=== PATIENT | female | born 2000 | race Caucasian/White ===

== ENCOUNTER 2020-05-20 13:53 | Emergency (ER) | payer MEDICAID ==
[~2020-05-20] VITALS: Ht 167.6 cm; Wt 54.4 kg
[2020-05-20 14:22] LABS: Basophils # (auto) 0 10 ^3/uL (0-0.2); Basophils % (auto) 0.6 % (0.0-2.0); Eosinophils # (auto) 0 10 ^3/uL (0-0.8); Eosinophils % (auto) 0.6 % (0.0-7.0); Hematocrit 40.4 % (36.0-46.0); Hemoglobin 13.6 g/dL (12.2-16.2); Lymphocytes # (auto) 1.4 10 ^3/uL (0.4-5.4); Mean Corpuscular Hemoglobin 27.9 pg (28.0-32.0); Mean Corpuscular Hgb Conc. 33.7 g/dL (32.0-36.0); Mean Corpuscular Volume 82.9 fL (80.0-100.0); Monocytes # (auto) 0.5 10 ^3/uL (0-1.3); Monocytes % (auto) 7.5 % (0.0-12.0); Neutrophils # (auto) 4.8 10 ^3/uL (1.6-8.6); Neutrophils % (auto) 70.3 % (37.0-80.0); Nucleated Red Blood Cells % 0.1 %; Platelet Count (auto) 228 10^3/uL (140-450); Red Blood Cells 4.88 10^6/uL (4.0-5.20); Red Cell Distribution Width 15.4 % (11.8-14.3); White Blood Cell 6.9 10^3/uL (4.4-10.8)
[2020-05-20 14:33] LABS: Albumin 4.3 g/dL (3.4-5.0); BUN/Creatinine Ratio 24.6; Calcium 8.9 mg/dL (8.5-10.1); Potassium 3.5 mmol/L (3.5-5.1)
[2020-05-20 14:36] LABS: Bilirubin, Total 1.5 mg/dL (0.2-1.0); Total Protein 7.6 g/dL (6.4-8.2)
[2020-05-20 15:57] LABS: Urine Bacteria NONE SEEN /hpf (None Seen); Urine Blood Negative /uL (Negative); Urine Mucus MODERATE (None Seen); Urine Specific Gravity 1.032 (1.001-1.035); Urine WBC 2 /hpf (0 - 5)
[2020-05-20 18:00] VITALS: BP 131/79
== END 2020-05-20 17:53 | disposition home or self-care (01) ==
LOC: ER 13:53
DX: O26.891 Other specified pregnancy related conditions, first trimester (principal); R10.9 Unspecified abdominal pain; R11.0 Nausea; Z3A.01 Less than 8 weeks gestation of pregnancy
CPT/HCPCS: 36415; 80053; 81001; 83690; 84702; 85025

== ENCOUNTER 2022-02-06 01:58 | Emergency (ER) | payer MEDICAID ==
[~2022-02-06] VITALS: Ht 167.6 cm; Wt 52.2 kg
[2022-02-06 03:47] VITALS: BP 105/57
== END 2022-02-06 04:04 | disposition home or self-care (01) ==
LOC: ER 01:58
DX: S60.221A Contusion of right hand, initial encounter (principal); Y04.2XXA Assault by strike against or bumped into by another person, initial encounter; Y93.89 Activity, other specified; Y92.89 Other specified places as the place of occurrence of the external cause; Y99.8 Other external cause status
CPT/HCPCS: 73130

== ENCOUNTER 2022-02-10 01:41 | Emergency (ER) | payer MEDICAID ==
[~2022-02-10] VITALS: Ht 167.6 cm; Wt 53.1 kg
[2022-02-10 01:41] VITALS: BP 132/78
== END 2022-02-10 05:27 | disposition home or self-care (01) ==
LOC: ER 01:41
DX: M79.641 Pain in right hand (principal); Z32.02 Encounter for pregnancy test, result negative
CPT/HCPCS: 73130; 81025